=== PATIENT | male | born 1960 | race Two or more races ===

== ENCOUNTER 2025-10-08 21:48 | Emergency (ER) | payer OTHER ==
[~2025-10-08] VITALS: Ht 165.1 cm; Wt 94.3 kg
[2025-10-08 23:15] VITALS: BP 153/89; O2SAT 99
[2025-10-09] MEDS ORDERED: ORPHENADRINE CITRATE 30 MG/ML AMPUL IM STA (00:19)
[2025-10-09] MEDS ORDERED: KETOROLAC TROMETHAMINE 60 MG VIAL IM STA (00:19)
[2025-10-09] MEDS ORDERED: ORPHENADRINE CITRATE 30 MG/ML AMPUL ONE (00:29)
[2025-10-09] MEDS ORDERED: KETOROLAC TROMETHAMINE 60 MG VIAL IM ONE (00:30)
[2025-10-09] MEDS ORDERED: NORFLEX100MG PO (02:39)
[2025-10-09] MEDS ORDERED: NABUMETONE750 MG PO (02:39)
== END 2025-10-09 02:47 ==
LOC: ER 21:49
DX: M54.50 Low back pain, unspecified (principal); E11.9 Type 2 diabetes mellitus without complications; I10 Essential (primary) hypertension; Z87.09 Personal history of other diseases of the respiratory system